=== PATIENT | male | born 1985 | race Two or more races ===

== ENCOUNTER 2025-02-26 21:04 | Emergency (ER) | payer OTHER ==
[~2025-02-26] VITALS: Ht 170.2 cm; Wt 72.6 kg
[2025-02-26 21:59] VITALS: BP 151/91; O2SAT 99
[2025-02-26] MEDS ORDERED: COZAAR100 MG PO (21:59)
[2025-02-26] MEDS ORDERED: ONDANSETRON HCL 2 MG/ML VIAL IV STA (22:42)
[2025-02-26] MEDS ORDERED: FAMOTIDINE/PF 20 MG/2 ML VIAL IV PUSH STA (22:42)
[2025-02-26] MEDS ORDERED: 0.9 % SODIUM CHLORIDE 1,000 ML IV STA (22:43)
[2025-02-26] MEDS ORDERED: SODIUM CHLORIDE 0.45 % 1,000 ML IV STA (22:54)
[2025-02-26] MEDS ORDERED: FAMOTIDINE/PF 20 MG/2 ML VIAL ONE (23:21)
[2025-02-26] MEDS ORDERED: ONDANSETRON HCL 2 MG/ML VIAL ONE (23:21)
== END 2025-02-27 02:06 | disposition home or self-care (01) ==
LOC: ER 22:05
DX: F12.129 Cannabis abuse with intoxication, unspecified (principal); R11.10 Vomiting, unspecified